=== PATIENT | male | born 1965 | race Caucasian/White ===

== ENCOUNTER 2016-11-20 12:09 | Emergency (ER) | payer OTHER ==
[~2016-11-20] VITALS: Ht 198.1 cm; Wt 102.1 kg
--- NOTE | 2016-11-20 12:33 | ED UPPER/LOWER EXTREMITY COMPL ---
History of Present Illness General Chief Complaint: Foot or Ankle Injury Stated Complaint: WORK INJURY L ANKLE PAIN Source: patient Exam Limitations: no limitations Vital Signs & Intake/Output Vital Signs & Intake/Output Vital Signs Date Time Temp Pulse Resp B/P B/P Pulse O2 O2 Flow FiO2 Mean Ox Delivery Rate 11/20 1355 98.1 82 18 122/88 97 Room Air 11/20 1211 99.0 100 20 139/87 98 Room Air Allergies Coded Allergies: No Known Allergies (11/20/16) Reconcile Medications Cyclobenzaprine HCl 10 MG TABLET 1 TAB PO TID SPASMS Ibuprofen 800 MG TABLET 1 TAB PO TID pain Triage Note: PT TO ED C/O LEFT CALF, LEFT HIP AND LEFT BACK PAIN. 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 Triage Nurses Notes Reviewed? yes Onset: Abrupt Duration: hour(s):, constant, continues in ED Timing: recent history Severity: moderate, severe Pain/Injury Location: Left: Leg. Method of Injury: fall No Modifying Factors: none HPI: 51-year-old male comes into the emergency room with complaints of left lower leg pain and left sided back pain. Patient reports that he was at work when he twisted his lower leg and fell on it. Denies any head trauma. Denies any neck pain. Denies any other associated symptoms. Nothing seems to make the symptoms better or worse. (SHMUEL LAWRENCE) Past History Travel History Traveled to [place] past 21 day No Medical History Any Pertinent Medical History? none Surgical History Surgical History: non-contributory Psychosocial History What is your primary language Angolan Tobacco Use: Never used ETOH Use: denies use Illicit Drug Use: denies illicit drug use Family History Hx Contributory? No (SHMUEL LAWRENCE) Review of Systems Review of Systems Constitutional: Reports: no symptoms. EENTM: Reports: no symptoms. Respiratory: Reports: no symptoms. Cardiovascular: Reports: no symptoms. Gastrointestinal/Abdominal: Reports: no symptoms. Genitourinary: Reports: no symptoms. Musculoskeletal: Reports: see HPI. Skin: Reports: no symptoms. Neurological/Psychological: Reports: no symptoms. Hematologic/Endocrine: Reports: no symptoms. Immunological: Reports: no symptoms. All Other Systems: Reviewed and Negative (SHMUEL LAWRENCE) Physical Exam Physical Exam General Appearance: well developed/nourished, mild distress Head: atraumatic Eyes: Bilateral: normal appearance. Ears, Nose, Throat: normal pharynx, normal ENT inspection, hearing grossly normal Neck: normal inspection Cardiovascular/Respiratory: no respiratory distress Back: normal inspection, paraspinal tenderness Leg Left: soft tissue tenderness, limited range of motion Neurologic/Tendon: normal sensation, normal motor functions, normal tendon functions, responds to pain, no evidence tendon injury, no pulse deficit Skin: intact, normal color, warm/dry Lymphatic: no anterior cervical janae (SHMUEL LAWRENCE) Progress Differential Diagnosis: arterial insufficiency, cellulitis, CHF, compartment syndrome, contusion, dislocation, DVT, fracture, gout, septic arthritis, sprain, tendon injury Plan of Care: Orders Procedure Date/time Status XRY-LUMBOSACRAL SPINE 4 VIEWS 11/20 1232 Active [id number], LEFT 11/20 1232 Active Diagnostic Imaging: Viewed by Me: Radiology Read. Discussed w/RAD: Radiology Read. Radiology Impression: SERVICE DATE: 11/20/16 EXAM TYPE: RAD - XRY- LUMBOSACRAL SPINE 4 VIEWS EXAMINATION: XR LUMBOSACRAL SPINE CLINICAL INFORMATION : Trauma. Pain. History of fall. Pain in back, hip and lower leg according to the patient. COMPARISON: None TECHNIQUE: AP and lateral views of the lumbosacral spine were obtained. FINDINGS: Mild right convex curvature of the lumbar spine. Vertebral body and disc height is maintained. No evidence of compression fracture. No evidence of disc space narrowing. There is mild osteophyte formation at the L1-L2 disc level. A large volume of stool is seen in the colon. IMPRESSION: Mild degenerative change and curvature of the lumbar spine. No evidence of compression fracture or acute findings. DICTATED BY: SALLY MILLER MD DATE/TIME DICTATED:11/20/161331 AQUACULTURE DIRECTOR:EVETTE DATE/TIME TRANSCRIBED:11/20/161331, EXAM TYPE: RAD - [id number], LEFT EXAMINATION : XR TIBIA AND FIBULA, LEFT CLINICAL INFORMATION: Trauma. Pain. History of fall. Pain in back, hip and lower leg according to the patient. COMPARISON: None TECHNIQUE: AP and lateral views of the left tibia and fibula were obtained. 4 images. FINDINGS: The alignment is normal. No fracture or dislocation or acute osseous abnormality is seen. There is mild soft tissue swelling anterior to the tibia. Well-defined posterior calcaneal spur is seen. IMPRESSION: Mild soft tissue swelling. No fracture or dislocation is identified. DICTATED BY: SALLY MILLER MD (SHMUEL LAWRENCE) Departure Departure Disposition: HOME OR SELF CARE Condition: Stable Clinical Impression Primary Impression: Muscle strain of left lower leg Referrals: PATIENT HAS NO PRIMARY CARE DR (PCP/Family) Additional Instructions: Take ibuprofen and Flexeril as prescribed. Ice for the first 24-48 hours followed by moist heat. Follow-up with occupational medicine. You may require physical therapy. Return if any other concerns. Please go over all results of today's visit with your primary care doctor. Contact your primary care doctor to let them know you were here in the emergency room. There may be nonspecific findings which may not be related to your visit today here in the emergency room but may require further evaluation and chronic monitoring by your primary care doctor. If you had a laceration today the chance of foreign body always remains. You should follow-up with your primary care doctor for recheck in 3-5 days for a wound check. If you had an x-ray done there is a chance that a fracture could have been missed on initial read and you should follow-up with your primary care doctor for repeat x-rays if symptoms persist. If your blood pressure was elevated here in the emergency room please have rechecked by her primary care doctor within the next 48 hours by your primary care doctor. If you were prescribed a narcotic here in the emergency room or any type of controlled substances you're not allowed to drive while taking this medication or operate any type of heavy machinery. Narcotics can make you feel lightheaded dizziness nausea and can cause constipation. You may need to hot die picker a stool softener. Thank you for choosing [facility] emergency room. Please return to the emergency room immediately if you have any other concerns worsening of symptoms. Departure Forms: Customer Survey Employee Industrial Accident General Discharge Information Prescriptions: Current Visit Scripts Ibuprofen 1 TAB PO TID #30 TAB Cyclobenzaprine HCl 1 TAB PO TID #20 TAB Comments 11/20/2016 2:18:27 PM Patient clinically looks well. In no apparent distress. Nontoxic appearing. No evidence of acute trauma. Pain consistent with muscular pain. Return if any other concerns. (KELI LAWRENCENTON) PA/SANE RN Co-Sign Statement Statement: ED Attending supervision documentation- [] I saw and evaluated the patient. I have also reviewed all the pertinent lab results and diagnostic results. I agree with the findings and the plan of care as documented in the PA's/SANE RN's documentation. x I have reviewed the ED Record and agree with the PA's/SANE RN's documentation. [] Additions or exceptions (if any) to the PAs/SANE RN's note and plan are summarized below: [] (NORA SOLORZANO,KEM)
--- NOTE | 2016-11-20 13:36 | RADIOLOGY REPORT ---
EXAMINATION: XR TIBIA AND FIBULA, LEFT CLINICAL INFORMATION: Trauma. Pain. History of fall. Pain in back, hip and lower leg according to the patient. COMPARISON: None TECHNIQUE: AP and lateral views of the left tibia and fibula were obtained. 4 images. FINDINGS: The alignment is normal. No fracture or dislocation or acute osseous abnormality is seen. There is mild soft tissue swelling anterior to the tibia. Well-defined posterior calcaneal spur is seen. IMPRESSION: Mild soft tissue swelling. No fracture or dislocation is identified.
--- NOTE | 2016-11-20 13:37 | RADIOLOGY REPORT ---
EXAMINATION: XR LUMBOSACRAL SPINE CLINICAL INFORMATION: Trauma. Pain. History of fall. Pain in back, hip and lower leg according to the patient. COMPARISON: None TECHNIQUE: AP and lateral views of the lumbosacral spine were obtained. FINDINGS: Mild right convex curvature of the lumbar spine. Vertebral body and disc height is maintained. No evidence of compression fracture. No evidence of disc space narrowing. There is mild osteophyte formation at the L1-L2 disc level. A large volume of stool is seen in the colon. IMPRESSION: Mild degenerative change and curvature of the lumbar spine. No evidence of compression fracture or acute findings.
[2016-11-20] MEDS ORDERED: IBUPROFEN800 M1 PO (13:47)
[2016-11-20] MEDS ORDERED: CYCLOBENZAPRINE10 M1 PO (13:47)
[2016-11-20 13:55] VITALS: BP 122/88
== END 2016-11-20 14:08 ==
LOC: ERH 12:09
DX: S86.812A Strain of other muscle(s) and tendon(s) at lower leg level, left leg, initial encounter (principal); X58.XXXA Exposure to other specified factors, initial encounter
CPT/HCPCS: 72110; 73590-LT